=== PATIENT | female | born 1990 | race Caucasian/White ===

== ENCOUNTER 2018-02-12 21:31 | Emergency (ER) | payer MEDICAID ==
[~2018-02-12] VITALS: Ht 162.6 cm; Wt 53.1 kg
[2018-02-12] MEDS ORDERED: Morphine Sulfate 4mg/ml Inj (IV USE ONLY) IVP ONE (22:00)
--- NOTE | 2018-02-12 22:03 | Emergency Room Report ---
History of Present Illness General Chief Complaint: Abdominal Pain Source: Patient Present Illness HPI Patient is a 27-year-old female who presented after increased the abdominal pain. Patient reports having generalized abdominal pain. This was reportedly sharp in nature. She denies any waxing or waning. She states that this had been present for one day. She denies any fever. She denies any vomiting. She reports having increased stool discoloration. Patient states that she had one similar episode in the past when she had colitis and had spent several days in the ICU at [facility]. The patient reports having one alcoholic drink yesterday. She denies any fever. She reports having prior ovarian surgery as a child. Patient reports having irregular menses after stopping control pills. Allergies: Coded Allergies: No Known Allergies (Unverified , 02/12/18) Patient History Past Medical History: see triage record Last Menstrual Period: Unknown Now: No Reviewed Nursing Documentation: PMH: Agreed; PSxH: Agreed Nursing Documentation-PMH Past Medical History: No History, Except For Hx Gastrointestinal Problems: Yes Review of Systems All Other Systems: negative except mentioned in HPI Physical Exam Vital Signs Date Time Temp Pulse Resp B/P (MAP) Pulse Ox O2 Delivery O2 Flow Rate FiO2 02/12/18 21:42 98.7 120 21 100 Room Air 98.8 Sp02 EP Interpretation: reviewed, normal General Appearance: normal inspection, alert, GCS 15 Head: atraumatic ENT: normal ENT inspection, hearing grossly normal, normal voice Neck: normal inspection, full range of motion, supple, no bony tend Respiratory: normal inspection, lungs clear, normal breath sounds, no respiratory distress, no retraction, no wheezing Cardiovascular #1: regular rate, rhythm, no edema Gastrointestinal: normal inspection, normal bowel sounds, non tender, soft, no guarding, no hernia Genitourinary: no CVA tenderness Musculoskeletal: normal inspection, back normal, normal range of motion Neurologic: normal inspection, alert, oriented x3, responsive, bar turner III-XII nml as tested, motor strength/tone normal, speech normal Psychiatric: normal inspection, judgement/insight normal, mood/affect normal Skin: normal inspection, normal color, no rash Medical Decision Making Diagnostic Impression: Primary Impression: Terminal ileitis of small intestine ER Course Patient presented for abdominal pain. Differential diagnoses included ischemic bowel, appendicitis, perforated viscus, abdominal aortic aneurysm, inferior myocardial infarction, viral gastroenteritis. Because of complexity of patient' s case laboratory testing and imaging studies were ordered.The patient was given IV fluids as well as pain medications. She was noted to have some improvement in her symptoms. CT of abdomen and pelvis read by radiology showed the mild inflammation of the terminal ileum consistent with either infection or inflammatory bowel disease. The patient is advised CT findings. She is given prescription for oral antibiotics as well as pain medications. The patient is advised that she would need to follow-up with gastroenterology for further evaluation and treatment. The patient is advised to return if she began having worsening pain persistent vomiting or other concerns Labs Test 02/12/18 21:48 02/12/18 22:00 Urine Color Pale yellow Urine Appearance Slightly cloudy Urine pH 6.5 (4.5-8.0) Urine Specific [place] 1.010 (1.005-1.035) Urine Protein Negative (NEGATIVE) Urine Glucose (UA) Negative (NEGATIVE) Urine Ketones 3+ (NEGATIVE) Urine Blood 1+ (NEGATIVE) Urine Nitrite Negative (NEGATIVE) Urine Bilirubin Negative (NEGATIVE) Urine Urobilinogen Normal MG/DL (0.0-1.0) Urine Leukocyte Esterase 2+ (NEGATIVE) Urine RBC 0-2 /HPF (0 - 2) Urine WBC 2-4 /HPF (0 - 2) Urine Squamous Epithelial Cells Many /LPF (NONE/OCC) Urine Bacteria Moderate /HPF (NONE) Urine HCG, Qualitative Negative (NEGATIVE) Urine Opiates Screen Negative (NEGATIVE) Urine Barbiturates Screen Negative (NEGATIVE) Phencyclidine (PCP) Screen Negative (NEGATIVE) Urine Amphetamines Screen Negative (NEGATIVE) Urine Benzodiazepines Screen Negative (NEGATIVE) Urine Cocaine Screen Negative (NEGATIVE) Urine Marijuana (THC) Screen Negative (NEGATIVE) White Blood Count 8.7 K/UL (4.8-10.8) Red Blood Count 4.40 M/UL (4.20-5.40) Hemoglobin 14.0 G/DL (12.0-16.0) Hematocrit 41.0 % (37.0-47.0) Mean Corpuscular Volume 93 FL (80-99) Mean Corpuscular Hemoglobin 31.9 PG (27.0-31.0) Mean Corpuscular Hemoglobin Concent 34.2 G/DL (32.0-36.0) Red Cell Distribution Width 11.4 % (11.6-14.8) Platelet Count 277 K/UL (150-450) Mean Platelet Volume 7.7 FL (6.5-10.1) Neutrophils (%) (Auto) 66.4 % (45.0-75.0) Lymphocytes (%) (Auto) 21.7 % (20.0-45.0) Monocytes (%) (Auto) 7.4 % (1.0-10.0) Eosinophils (%) (Auto) 3.6 % (0.0-3.0) Basophils (%) (Auto) 1.0 % (0.0-2.0) Prothrombin Time 10.7 SEC (9.30-11.50) Prothromb Time International Ratio 1.0 (0.9-1.1) Activated Partial Thromboplast Time 30 SEC (23-33) Sodium Level 138 MMOL/L (136-145) Potassium Level 3.3 MMOL/L (3.5-5.1) Chloride Level 101 MMOL/L (98-107) Carbon Dioxide Level 25 MMOL/L (21-32) Anion Gap 12 mmol/L (5-15) Blood Urea Nitrogen 9 mg/dL (7-18) Creatinine 0.8 MG/DL (0.55-1.30) Estimat Glomerular Filtration Rate > 60 mL/min (>60) Glucose Level 124 MG/DL (74-106) Calcium Level 9.7 MG/DL (8.5-10.1) Total Bilirubin 0.4 MG/DL (0.2-1.0) Aspartate Amino Transf (AST/SGOT) 26 U/L (15-37) Alanine Aminotransferase (ALT/SGPT) 41 U/L (12-78) Alkaline Phosphatase 74 U/L (46-116) Total Protein 8.7 G/DL (6.4-8.2) Albumin 4.7 G/DL (3.4-5.0) Globulin 4.0 g/dL Albumin/Globulin Ratio 1.2 (1.0-2.7) Lipase 145 U/L (73-393) Last Vital Signs Date Time Temp Pulse Resp B/P (MAP) Pulse Ox O2 Delivery O2 Flow Rate FiO2 02/12/18 21:42 98.7 120 21 100 Room Air 98.8 Status: improved Disposition: HOME, SELF-CARE Condition: Stable Scripts Trimethoprim/Sulfamethoxazole 160/800* (BACTRIM DS TABLET*) 1 Each Tablet 1 TAB ORAL Q12H, #14 TAB 0 Refills Prov: Oswaldo Grant MD 02/13/18 Metronidazole* (FLAGYL*) 500 Mg Tablet 500 MG ORAL EVERY 8 HOURS, #21 TAB Prov: Oswaldo Grant MD 02/13/18 Hydrocodone Bit/Acetaminophen 5-325* (NORCO 5-325*) 1 Each Tablet 1 TAB ORAL Q6H PRN for For Pain, #20 TAB 0 Refills Prov: Oswaldo Grant MD 02/13/18 Oswaldo Grant MD Feb 12, 2018 22:03
[2018-02-12 22:17] LABS: EOSINOPHILS % (AUTO) 3.6 % (0.0-3.0); LYMPHOCYTES % (AUTO) 21.7 % (20.0-45.0); MEAN CORPUSCULAR VOLUME 93 FL (80-99); MONOCYTES % (AUTO) 7.4 % (1.0-10.0); NEUTROPHILS % (AUTO) 66.4 % (45.0-75.0); PLATELET COUNT 277 K/UL (150-450); RED CELL DISTRIBUTION WIDTH 11.4 % (11.6-14.8); WHITE BLOOD COUNT 8.7 K/UL (4.8-10.8)
[2018-02-12 22:18] LABS: APPEARANCE,URINE SLIGHTLY CLOUDY; BILIRUBIN, URINE NEGATIVE (NEGATIVE); COLOR,URINE PALE YELLOW; GLUCOSE, URINE (UA) NEGATIVE (NEGATIVE); KETONES,URINE 3+ (NEGATIVE); LEUKOCYTE ESTERASE ,URINE 2+ (NEGATIVE); NITRITE,URINE NEGATIVE (NEGATIVE); PH,URINE 6.5 (4.5-8.0); PROTEIN,URINE NEGATIVE (NEGATIVE); UROBILINOGEN,URINE NORMAL MG/DL (0.0-1.0)
[2018-02-12 22:23] LABS: ANION GAP 12 mmol/L (5-15); BLOOD UREA NITROGEN 9 mg/dL (7-18); CALCIUM 9.7 MG/DL (8.5-10.1); CARBON DIOXIDE 25 MMOL/L (21-32); CHLORIDE 101 MMOL/L (98-107); CREATININE 0.8 MG/DL (0.55-1.30); POTASSIUM 3.3 MMOL/L (3.5-5.1); SODIUM 138 MMOL/L (136-145)
[2018-02-12 22:26] LABS: ALANINE AMINOTRANSFERASE 41 U/L (12-78); ALBUMIN 4.7 G/DL (3.4-5.0); ALBUMIN/GLOBULIN RATIO 1.2 (1.0-2.7); ALKALINE PHOSPHATASE 74 U/L (46-116); ASPARTATE AMINO TRANSFERASE 26 U/L (15-37); BILIRUBIN,TOTAL 0.4 MG/DL (0.2-1.0)
[2018-02-12] MEDS ORDERED: Gastrograffin 30ml ORAL PRN (23:00)
[2018-02-12] MEDS ORDERED: Isovue-300 100ml vial INJ PRN (23:00)
[2018-02-12 23:28] VITALS: BP 108/77
[2018-02-13] MEDS ORDERED: NORCO 5-325 TA1 EACH ORAL (02:08)
[2018-02-13] MEDS ORDERED: BACTRIM DS TAB1 EAC1 ORAL (02:08)
[2018-02-13] MEDS ORDERED: FLAGYL500 MG ORAL (02:08)
[2018-02-13 02:19] VITALS: BP 108/77
--- NOTE | 2018-02-13 09:32 | Diagnostic Imaging Report ---
Clinical Indication: Abdominal pain for 6 hours Technique: Patient given oral contrast. IV administration nonionic contrast. Venous phase spiral acquisition obtained through the abdomen and pelvis. Multiplanar reconstructions were generated. Total dose length product 511 mGycm. CTDIvol(s) and mGy. Dose reduction achieved using automated exposure control Comparison: none Findings: The appendix is normal. The terminal ileum is mildly fluid-filled with enhancement and borderline thickened of the wall. Contrast has not reached the terminal ileum. No small bowel distention. No small bowel wall thickening elsewhere. Distal esophagus, stomach, duodenum are unremarkable. No evidence of diverticulosis or diverticulitis. Small amount of free pelvic fluid is present in the cul-de-sac. The liver demonstrates focal fatty infiltration in the usual location adjacent to the falciform ligament. It is otherwise unremarkable. The gallbladder, bile ducts, pancreas, spleen, adrenals, kidneys are all unremarkable. No retroperitoneal or mesenteric mass or adenopathy. No pelvic mass or adenopathy. The included lung bases are clear. The bones are unremarkable. Impression: Prominent fluid-filled terminal ileum with some wall enhancement, could indicate enteritis changes. This could be infectious or noninfectious inflammatory. Correlate with clinical history and findings Small amount of free pelvic fluid Focal fatty infiltration This agrees with the preliminary interpretation provided overnight by [facility] teleradiology service. The CT scanner at [facility] is accredited by the [employer] and the scans are performed using protocols designed to limit radiation exposure to as low as reasonably achievable to attain images of sufficient resolution adequate for diagnostic evaluation.
== END 2018-02-13 02:30 | disposition home or self-care (01) ==
LOC: EMR 21:57
DX: K50.00 Crohn's disease of small intestine without complications (principal)
CPT/HCPCS: 36415; 74177; 80053; 80307; 81003; 81025; 83690; 85025; 85610; 85730; 87086; 96361; 96374; 96375; 99284; J2270; J2405; Q9967

== ENCOUNTER 2018-06-15 18:58 | Emergency (ER) | payer MEDICAID ==
[~2018-06-15] VITALS: Ht 162.6 cm; Wt 51.7 kg
[~2018-06-15 18:58] MED LIST: BACTRIM DS TAB1 EAC1 ORAL; CEPHALEXIN500 MG ORAL; FLAGYL500 MG ORAL; NKM; NORCO 5-325 TA1 EACH ORAL; PHENAZOPYRIDIN200 MG ORAL; POLYTRIM OP SOL10 ML OPHTHALM
[2018-06-15 19:10] VITALS: BP 129/79
--- NOTE | 2018-06-15 19:10 | NUR ---
ED Nurse Note: Patient walk in from home c/o left flank pain radiating to lower back and left abdomen for 1x week. Patient states she believes she had a UTI 2x weeks ago that went untreated. DUANED seen Pt at bedside.
[2018-06-15] MEDS ORDERED: NKM (19:16)
[2018-06-15 19:28] LABS: APPEARANCE,URINE CLEAR; BILIRUBIN, URINE NEGATIVE (NEGATIVE); COLOR,URINE PALE YELLOW; GLUCOSE, URINE (UA) NEGATIVE (NEGATIVE); KETONES,URINE NEGATIVE (NEGATIVE); LEUKOCYTE ESTERASE ,URINE 3+ (NEGATIVE); NITRITE,URINE NEGATIVE (NEGATIVE); PH,URINE 5 (4.5-8.0); PROTEIN,URINE 1+ (NEGATIVE); UROBILINOGEN,URINE NORMAL MG/DL (0.0-1.0)
[2018-06-15] MEDS ORDERED: Cephalexin 500mg cap ORAL ONE (19:30)
[2018-06-15] MEDS ORDERED: TYLENOL EXTRA500 MG ORAL (19:35)
[2018-06-15] MEDS ORDERED: CEPHALEXIN500 MG ORAL (19:35)
[2018-06-15] MEDS ORDERED: PHENAZOPYRIDIN200 MG ORAL (19:35)
[2018-06-15 19:45] VITALS: BP 128/87
--- NOTE | 2018-06-15 19:45 | NUR ---
ED Nurse Note: Pt is cleared by ERMD. Pt is AO x 4times, VSS, on room air no distress. DC and Meds instructions given to Pt, Pt understood well. Pt walked out Er with steady gait.
--- NOTE | 2018-06-15 22:05 | Emergency Room Report ---
History of Present Illness General Chief Complaint: Female Urogenital Problems Source: Patient Present Illness HPI 27-year-old female presents ED for evaluation. Patient complaining of dysuria symptoms 2 weeks. Now having left flank pain times one week. Denies fevers or chills. Denies nausea or vomiting. States she's had UTIs in the past. Pain is dull, 7 out of 10, nonradiating. No other aggravating relieving factors. Denies any other associated symptoms Allergies: Coded Allergies: No Known Allergies (Unverified , 02/12/18) Patient History Past Medical History: none Past Surgical History: none Pertinent Family History: none Social History: Denies: smoking, alcohol use, drug use Last Menstrual Period: 06/04/2018 Now: No : 0 Para: 0 Immunizations: UTD Reviewed Nursing Documentation: PMH: Agreed; PSxH: Agreed Nursing Documentation-PMH Past Medical History: No Stated History Hx Gastrointestinal Problems: Yes Review of Systems All Other Systems: negative except mentioned in HPI Physical Exam Vital Signs Date Time Temp Pulse Resp B/P (MAP) Pulse Ox O2 Delivery O2 Flow Rate FiO2 06/15/18 19:13 98.1 83 16 100/60 100 Room Air Sp02 EP Interpretation: reviewed, normal General Appearance: no apparent distress, alert, GCS 15, non-toxic Head: normocephalic Eyes: bilateral eye normal inspection, bilateral eye PERRL ENT: normal ENT inspection Neck: normal inspection Respiratory: normal inspection Cardiovascular #1: normal inspection Gastrointestinal: normal bowel sounds, non tender, soft, non-distended, no guarding, no rebound Rectal: deferred Genitourinary: CVA tenderness (L) Musculoskeletal: normal inspection Neurologic: alert, oriented x3, responsive, motor strength/tone normal, sensory intact, speech normal Psychiatric: normal inspection Skin: normal inspection Lymphatic: normal inspection Medical Decision Making Diagnostic Impression: Primary Impression: UTI (urinary tract infection) Qualified Codes: N39.0 - Urinary tract infection, site not specified ER Course Hospital Course 27-year-old female presents to ED complaining of dysuria with flank pain Differential diagnoses include: UTI, cystitis, pyelonephritis Clinical course Patient placed on stretcher. After initial history and physical I ordered UA, urine , tylenol UA+ bacteria. We will treat with antibiotics. Discussed findings with patient. Given Keflex here. Safe for discharge close outpatient follow-up. States she has a PMD Diagnosis - UTI Stable and discharged home with prescriptions for Rx keflex, tylenol, pyridium. Instructed to followup with PMD. Return to ED if symptoms recur or worsen Labs Test 06/15/18 19:20 Urine Color Pale yellow Urine Appearance Clear Urine pH 5 (4.5-8.0) Urine Specific [place] 1.020 (1.005-1.035) Urine Protein 1+ (NEGATIVE) Urine Glucose (UA) Negative (NEGATIVE) Urine Ketones Negative (NEGATIVE) Urine Blood 3+ (NEGATIVE) Urine Nitrite Negative (NEGATIVE) Urine Bilirubin Negative (NEGATIVE) Urine Urobilinogen Normal MG/DL (0.0-1.0) Urine Leukocyte Esterase 3+ (NEGATIVE) Urine RBC 2-4 /HPF (0 - 2) Urine WBC 20-30 /HPF (0 - 2) Urine Squamous Epithelial Cells Few /LPF (NONE/OCC) Urine Bacteria Few /HPF (NONE) Urine HCG, Qualitative Negative (NEGATIVE) Last Vital Signs Date Time Temp Pulse Resp B/P (MAP) Pulse Ox O2 Delivery O2 Flow Rate FiO2 06/15/18 19:13 98.1 83 16 100/60 100 Room Air Status: improved Disposition: HOME, SELF-CARE Condition: Stable Scripts Acetaminophen* (TYLENOL EXTRA STRENGTH*) 500 Mg Tablet 500 MG ORAL Q8H PRN for Prn Headache/Temp > 101, #30 TAB 0 Refills Prov: Javad Pickens MD 06/15/18 Phenazopyridine Hcl* (PYRIDIUM*) 200 Mg Tablet 200 MG ORAL THREE TIMES A DAY for 3 Days, TAB 0 Refills Prov: Javad Pickens MD 06/15/18 Cephalexin* (KEFLEX*) 500 Mg Capsule 500 MG ORAL EVERY 6 HOURS for 7 Days, CAP Prov: Javad Pickens MD 06/15/18 Patient Instructions: Urinary Tract Infection Javad Pickens MD Jun 15, 2018 22:05
== END 2018-06-15 19:45 | disposition home or self-care (01) ==
LOC: EMR 19:31
DX: N39.0 Urinary tract infection, site not specified (principal)
CPT/HCPCS: 81003; 81025; 87086; 99283

== ENCOUNTER 2018-09-26 09:44 | Emergency (ER) | payer BC, MEDICAID ==
[~2018-09-26] VITALS: Ht 162.6 cm; Wt 52.2 kg
[~2018-09-26 09:44] MED LIST changes: +TYLENOL EXTRA500 MG ORAL
[2018-09-26 09:53] VITALS: BP 90/58
[2018-09-26] MEDS ORDERED: HYDROcodone/Acetamin 5/325 tab ORAL ONE (11:00)
--- NOTE | 2018-09-26 11:08 | Emergency Room Report ---
History of Present Illness General Chief Complaint: Eye Problems Source: Patient Present Illness HPI 27-year-old female with no medical problems presents with right superior eyelid pain and redness for the past 4-5 days, she reports she's tried topical antibiotic drops, as well as warm compresses without much relief. She reports it's very painful and feels like it spreading up her eyelid towards her forehead now. She denies fevers, vision changes, and did not notice any obvious lumps before. Allergies: Coded Allergies: No Known Allergies (Unverified , 02/12/18) Patient History Past Medical History: see triage record Last Menstrual Period: 09/01/18 Reviewed Nursing Documentation: PMH: Agreed; PSxH: Agreed Nursing Documentation-PMH Past Medical History: No Stated History Hx Gastrointestinal Problems: Yes Review of Systems Constitutional: Denies: fever Eye: Denies: acuity changes Respiratory: Denies: cough, shortness of breath Cardiovascular: Denies: chest pain Gastrointestinal: Denies: nausea, vomiting Skin: Denies: rash Neurological: Denies: headache Physical Exam Vital Signs Date Time Temp Pulse Resp B/P (MAP) Pulse Ox O2 Delivery O2 Flow Rate FiO2 09/26/18 09:45 98.2 90 90/58 09/26/18 09:53 17 98 Room Air General Appearance: well appearing, no apparent distress Head: normocephalic, atraumatic Eyes: right eye lid inflammation - Superior lid with erythema mild tenderness, lid inverted, no obvious stye or chalazion seen; bilateral eye PERRL, bilateral eye EOMI, bilateral eye other - Normal conjunctiva, ENT: hearing grossly normal, normal voice Neck: normal inspection, full range of motion, supple, thyroid normal Respiratory: no respiratory distress, speaking full sentences Musculoskeletal: normal inspection, no calf tenderness Neurologic: alert, barrel polisher III-XII nml as tested, motor strength/tone normal, sensory intact, normal gait Psychiatric: mood/affect normal Skin: no rash Lymphatic: no adenopathy Medical Decision Making Diagnostic Impression: Primary Impression: Periorbital cellulitis of right eye ER Course Patient with R eyelid blepharitis vs. periorbital cellulitis, will give clindamycin since patient reports the redness is spreading, no obvious stye or chalazion seen, no pain with EOM movements, do not suspect orbital cellulitis, will dc with ophtho f/u. Last Vital Signs Date Time Temp Pulse Resp B/P (MAP) Pulse Ox O2 Delivery O2 Flow Rate FiO2 09/26/18 09:53 98.2 86 17 90/58 98 Room Air Disposition: HOME, SELF-CARE Condition: Stable Referrals: NON PHYSICIAN (PCP) CHRISTAL MARINELLI M.D Sep 26, 2018 11:08
[2018-09-26] MEDS ORDERED: NORCO 5-325 TA1 EACH ORAL (11:18)
[2018-09-26] MEDS ORDERED: CLINDAMYCIN HC150 MG ORAL (11:18)
[2018-09-26 11:30] VITALS: BP 98/63
== END 2018-09-26 11:30 | disposition home or self-care (01) ==
LOC: EMR 10:20
DX: L03.213 Periorbital cellulitis (principal)
CPT/HCPCS: 99282